=== PATIENT | male | born 1930 | race Caucasian/White ===

== ENCOUNTER 2017-04-02 08:12 | Inpatient (IN) | payer OTHER, BC ==
[2017-03-26 11:20] VITALS: BMI 27.0
--- NOTE | 2017-03-26 11:51 | PAT Medication Instructions ---
Service Date Mar 26, 2017. Current Home Medication List Calcium/Vitamin D (Os-Pawel 500 Plus D), 2 TAB PO BID Cetirizine (Zyrtec), 10 MG PO QPM Cholecalciferol (Vitamin D3), 1 TAB PO QPM PRN for PM Cyanocobalamin (Vitamin B12 500MCG), 3,000 MCG PO QPM Levothyroxine Sodium (Levothyroxine Sodium), 1 TAB PO QAM Omeprazole (Prilosec), 20 MG PO QAM Sennosides (Natural Senna Laxative), 1 TAB PO BID Tamsulosin Hcl (Flomax), 0.4 MG PO QAM [Diclofenac/Misoprost], 1 TAB PO BID Medication Instructions For Your Scheduled Surgery - Check with surgeon for instructions: [Diclofenac/Misoprost], 1 TAB PO BID - Hold the following medications the morning of surgery: Tamsulosin Hcl (Flomax), 0.4 MG PO QAM Sennosides (Natural Senna Laxative), 1 TAB PO BID Calcium/Vitamin D (Os-Pawel 500 Plus D), 2 TAB PO BID - Take the following medications the morning of surgery with a sip of water: Levothyroxine Sodium (Levothyroxine Sodium), 1 TAB PO QAM Omeprazole (Prilosec), 20 MG PO QAM - Take the following medications as scheduled the night before surgery: Sennosides (Natural Senna Laxative), 1 TAB PO BID Cholecalciferol (Vitamin D3), 1 TAB PO QPM PRN for PM Cyanocobalamin (Vitamin B12 500MCG), 3,000 MCG PO QPM Cetirizine (Zyrtec), 10 MG PO QPM If you have any questions please call us at [phone] or [phone] or [phone]
[2017-03-26 12:27] LABS: URINE APPEARANCE CLEAR (CLEAR); URINE BILIRUBIN NEG (NEG); URINE COLOR YELLOW; URINE NITRITE NEG (NEG); URINE SPECIFIC GRAVITY 1.012 (1.000-1.030); UROBILINOGEN NEG (NEG)
[2017-03-26 12:28] LABS: MANUAL MICROSCOPIC REQUIRED? NO; REVIEW REQ? NO
[2017-03-26 12:28] LABS: BASO % 0.2 %; BASO ABS # 0.01 K/uL (0-0.2); COMPLETE YES; HEMATOCRIT 40.8 % (42-52); IG% 0.2 %; LYMPH % 33.7 %; LYMPH ABS # 1.71 K/uL (1.2-3.4); MEAN CELL VOLUME 94.2 fL (80-100); MEAN CORPUSCULAR HEMOGLOBIN 30.7 pg (25-34); MEAN CORPUSCULAR HGB CONC 32.6 g/dl (32-36); MEAN PLATELET VOLUME 11.7 fL (7.4-10.4); MONO % 9.9 %; PLATELET COUNT 104 K/uL (130-400); RED BLOOD COUNT 4.33 M/uL (4.7-6.1); WHITE BLOOD COUNT 5.07 K/uL (4.8-10.8)
[2017-03-26 12:38] LABS: INR 1.1 (0.9-1.1); PARTIAL THROMBOPLASTIN RATIO 1.1; PROTHROMBIN TIME (PATIENT) 11.4 SECONDS (9.0-12.0)
--- NOTE | 2017-03-26 12:41 | DIAGNOSTIC IMAGING REPORT ---
CHEST PREADMISSION(PA/LAT) CLINICAL HISTORY: PAT preoperative evaluation COMPARISON STUDY: 12/23/2014 FINDINGS: Mild stable cardia megaly. Permanent bipolar cardiac pacemaker in good position. Mild stable emphysematous change. No acute process. Small fixed lateral hernia also unchanged. IMPRESSION: Chronic change. No acute process. The above report was generated using voice recognition software. It may contain grammatical, syntax or spelling errors. Electronically signed by: Nishant Arriaga M.D. 03/26/2017 12:40 PM Dictated Date/Time: 03/26/2017 12:39 PM
[2017-03-26 12:59] LABS: ESTIMATED AVERAGE GLUCOSE 103 mg/dl; HA1C FLAG Normal (Normal)
[2017-03-26 13:32] LABS: BUN/CREATININE RATIO 17.1 (10-20); CALCIUM 8.4 mg/dl (8.5-10.1); CREATININE 1.3 mg/dl (0.60-1.40); POTASSIUM 4.4 mmol/L (3.5-5.1)
--- NOTE | 2017-04-01 08:53 | HISTORY & PHYSICAL EXAMINATION ---
DATE OF ADMISSION: 04/02/2017 HISTORY OF PRESENT ILLNESS: The patient presents for left total knee arthroplasty. 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 He has failed attempts at conservative management including physical therapy, anti-inflammatories, relative rest, activity modification and presents for left total knee arthroplasty. He is 6 feet, 210-pound white male with severe DJD. He lives at 2-story home with 2 stairs. He is retired and previously worked at [employer]. His medical history is consistent with that of a pacemaker and no blood thinners. MEDICATIONS: Include cetirizine 10 mg p.o. daily, diclofenac as needed daily, levothyroxine 175 mcg p.o. daily, omeprazole 20 mg p.o. daily, tamsulosin hydrochloride cap 0.4 mg 1 p.o. daily. PAST MEDICAL HISTORY: Significant for irregular heartbeat with pacemaker. PAST SURGICAL HISTORY: Significant for previous spine fusion. SOCIAL HISTORY: The patient denies history of smoking, alcohol use or recreational drug use. FAMILY HISTORY: Otherwise unremarkable and noncontributory. ALLERGIES TO MEDICATIONS: None. REVIEW OF SYSTEMS: Otherwise unremarkable. See history of present illness for pertinent positives. PHYSICAL EXAMINATION: GENERAL: Reveals a very pleasant 86-year-old white male, alert and oriented x3, in no acute distress. He has failed attempts at conservative management and presents for total knee arthroplasty after failing all other attempts at conservative management. HEENT: Otherwise unremarkable, atraumatic, normocephalic. HEART: Regular at 70 beats per minute. No murmurs are noted. LUNGS: Clear without rales, rhonchi, or wheezes noted. ABDOMEN: Soft, nontender, nondistended. Bowel sounds are present in all 4 quadrants. RECTAL: No rectal examination performed. MUSCULOSKELETAL: Consistent with that of left knee pain with varus alignment and DJD, crepitation, medial joint line pain, tenderness and moderate effusion. IMAGING DATA: X-rays revealed there to be evidence of subchondral sclerosis with osteophyte formation. PLAN: Total knee arthroplasty, postoperative pain management, DVT prophylaxis, antibiotics as necessary.
[~2017-04-02] VITALS: Ht 185.4 cm; Wt 92.9 kg
[2017-04-02] VITALS (8 sets, daily range): BP systolic 103–136; BP diastolic 62–89; PULSE 60–65; TEMP 36.3–36.5; O2SAT 92–97; Ht 185.4 cm; Wt 92.9 kg
--- NOTE | 2017-04-02 06:53 | History & Physical Bridge Note ---
H&P Re-Evaluation Bridge Note: I have examined the patient, reviewed the History & Physical and in the interval since the performance of the History & Physical I have noted the following changes of clinical significance: No changes noted
[~2017-04-02 08:12] MED LIST: ACETAMINOPHEN 500 MG TAB PO SCH; ATROPINE SULFATE 0.1 MG/ML 5ML SYR IV PRN; BUPIVACAINE 0.25% 30 ML VIAL ONE; BUPIVACAINE 0.5 % 5 MG/1 ML PF 10ML VIAL ONE; CALC500C70 PO; CEFAZOLIN 2000 MG/60 ML D5W 60 ML IV SCH; CETI10TA84 PO; CHOL20007 PO; CYAN500T13 PO; CeleBREX 200 MG CAP PO SCH; DEXAMETHASONE 4 MG TAB PO SCH; DICLOFENAC PO; EpHEDrine SULFATE INJ 50 MG/ML AMP IV PRN; FAMOTIDINE 20 MG TAB PO SCH; GABAPENTIN 300 MG CAP PO SCH; LACTATED RINGER'S 1000ML 1,000 ML IV SCH; LACTATED RINGER'S 1000ML 500 ML IV ONE; LACTATED RINGER'S 1000ML IV SCH; LEVO175T3 PO; METOCLOPRAMIDE HCL 10 MG TAB PO SCH; OMEP20CA9 PO; ONDANSETRON INJ 2 MG/ML 2 ML VIAL IV PRN; ROPIVACAINE 5MG/ML 30 ML 150 MG, BUPIVACAINE/EPINEPHR 0.5% MPF 30 ML, KETOROLAC TROMETH... INFIL SCH; SENNTAB4 PO; TAMS0.4C38 PO; [UNRECOGNIZED DRUG - OTHER] PO
[2017-04-02] MEDS ORDERED: FENTANYL CITRATE INJ 50 MCG/1 ML 2 ML VIAL ONE (08:21)
[2017-04-02] MEDS ORDERED: MIDAZOLAM HCL 1 MG/ML 2ML VIAL ONE (08:21)
[2017-04-02] MEDS ORDERED: PROPOFOL IV EMULSION 10 MG/ML 20 ML VIAL IV ONE (08:24)
[2017-04-02] MEDS: TRANEXAMIC ACID INJ 1,000 MG in SODIUM CHLORIDE 0.9% 100ML 100 ML IV SCH ×2 (10:13→14:18)
[2017-04-02] MEDS ORDERED: BACITRACIN 50000 UNIT VIAL ONE (10:44)
[2017-04-02] MEDS ORDERED: ORTHO JOINT ANESTHETIC ONE (10:44)
[2017-04-02] MEDS ORDERED: POVIDONE-IODINE OP SOLN 30 ML BTL ONE (10:44)
[2017-04-02] MEDS ORDERED: LABETALOL HCL IV 5 MG/ML 20ML IV ONE (11:31)
--- NOTE | 2017-04-02 12:16 | [facility] Operative Report ---
Operative Report Operative Date Apr 02, 2017. Pre-Operative Diagnosis Left knee degenerative joint disease Post-Operative Diagnosis same as preoperative diagnosis Procedure(s) Performed Left total knee arthroplasy using [employer] general journey 2 nonblock femur 8 tibia 15 poly-[address] 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 Right knee bone and tissue Complication(s) None Disposition Recovery Room / PACU Indications Severe end-stage DJD [facility] to conservative management left knee failed attempts at conservative management including injections physical therapy relative rest Description of Procedure After proper prepping and draping of the left lower extremity anterior midline incision was made over the region of the extensor extensor mechanism after meticulous hemostasis was obtained and maintained in subcutaneous tissues a medial parapatellar incision was made The patella was subluxed lateralward the medial lateral gutter were cleaned from any hypertrophic synovitis and scar tissue of the distal femoral block was placed and the distal femoral osteotomy cut was made subsequently the chamfers anterior and posterior osteotomy cuts were made utilizing the 4-in-1 block the tibia was subsequently subluxed anteriorward medial and ateral meniscal remnants were excised in their entirety remnants of the anterior and posterior cruciate ligaments were excised in their entirety excellent exposure of the proximal tibia was obtained the tibial osteotomy guide was placed on the proximal tibial osteotomy cut was made once again the knee was irrigated with copious amounts of sterile saline solution the patella was subsequently everted lateralward thickened scar tissue around the patella was removed the patella was subsequently cut utilizing a freehand technique and was drilled prepared for final preparation and placement of patella socially flexion-extension gaps were checked and the equal and symmetric trials were placed to the appropriate femoral and tibial trials with poly-spacer being placed for equal flexion and extension gaps and full range of motion including extension to 0 and flexion to 140 the trial components after having been taken to recovery range of motion was subsequently removed meticulous hemostasis was obtained and maintained subsequently a knee block injection of joint cocktail including ropivacaine 0.5% 150 mg. Bupivacaine 0.5 % epinephrine 1-200,030 mL's toradol 30 mg dexamethasone 4 mg ketamine 10 mg clonidine 100 micrograms normal saline solution 30 mg was infiltrated into the soft tissues of the posterior knee medial lateral gutters and periosteal synovium special attention was paid to protect neurovascular structures at all times subsequently trial components having been removed the knee was irrigated with sterile saline solution. debris was removed the proximal tibia was subsequently prepared and was made ready for the placement of the tibial component tibial component was also cemented and tamped into position the femoral component was subsequently placed and cemented in the position the patellar component was subsequently cemented in position because hemostasis once again obtained and maintained wound having been thoroughly irrigated with debridement and debridement lavage was performed as well as a medial parapatellar incision closed with #1 Vicryl in interrupted fashion subcutaneous was closed with #2 Vicryl skin was closed with skin clips. PA-C was necessary for prepping and drapping as well as wound closure of deep fascia Sub cutaneous tissue and skin and was necessary for the case. A sterile compressive dressing was placed patient was taken to recovery in stable condition of report dictated by Lyle I attest to the content of the Intraoperative Record and any orders documented therein. Any exceptions are noted below. I attest to the content of the Intraoperative Record and any orders documented therein. Any exceptions are noted below.
[2017-04-02] MEDS ORDERED: ONDANSETRON INJ 2 MG/ML 2 ML VIAL IV PRN (13:00)
[2017-04-02] MEDS ORDERED: ZOLPIDEM TARTRATE 5 MG TAB PO PRN (13:00)
[2017-04-02] MEDS ORDERED: SOD PHOSPHATE/SOD BIPHOSPHATE ENEMA 132 ML BTL PR PRN (13:00)
[2017-04-02] MEDS ORDERED: BISACODYL 10 MG SUPP PR PRN (13:00)
[2017-04-02] MEDS ORDERED: MAGNESIUM HYDROXIDE SUSP 30 ML UDC PO PRN (13:00)
[2017-04-02] MEDS ORDERED: OXYCODONE HCL IR 5 MG TAB (IMMEDIATE RELEASE) PO PRN (13:00)
--- NOTE | 2017-04-02 13:30 | DIAGNOSTIC IMAGING REPORT ---
LEFT KNEE 1 OR 2 VIEWS ROUTINE CLINICAL HISTORY: Postoperative evaluation. COMPARISON: None FINDINGS: Alignment of the total left knee arthroplasty is anatomic. There is no fracture or unexpected radiopaque foreign body. Drains are in place. IMPRESSION: Expected findings following total left knee arthroplasty. Electronically signed by: Heladio Armstrong M.D. 04/02/2017 1:28 PM Dictated Date/Time: 04/02/2017 1:28 PM
--- NOTE | 2017-04-02 13:37 | Anesthesiology Progress Note ---
Anesthesia Post Op Note Date & Time Apr 02, 2017 at 13:37 Vital Signs Pain Intensity: 0 Vital Signs Past 12 Hours Date Time Temp Pulse Resp B/P (MAP) Pulse Ox O2 Delivery O2 Flow Rate FiO2 04/02/17 13:30 63 18 130/84 95 Nasal Cannula 2 04/02/17 13:15 36.3 61 15 130/86 95 Nasal Cannula 2 04/02/17 13:05 62 15 117/79 95 Nasal Cannula 2 04/02/17 12:55 60 24 118/69 97 Nasal Cannula 2 04/02/17 12:49 36.2 62 14 122/86 94 Nasal Cannula 2 04/02/17 08:48 36.4 62 18 126/89 94 Room Air Notes Mental Status: alert / awake / arousable, participated in evaluation Pt Amnestic to Procedure: Yes Nausea / Vomiting: adequately controlled Pain: adequately controlled Airway Patency, RR, SpO2: stable & adequate BP & HR: stable & adequate Hydration State: stable & adequate Neuraxial Anesthesia: was administered, sensory block is resolving Anesthetic Complications: no major complications apparent
[2017-04-02] MEDS: D5W AND 1/2NSS + 20MEQ KCL 1,000 ML IV SCH (16:18)
[2017-04-02] MEDS: ACETAMINOPHEN 500 MG TAB PO SCH ×2 (16:18→21:51)
[2017-04-02] MEDS: KETOROLAC TROMETHAMINE 15 MG/ML VIAL IV. SCH (17:32)
[2017-04-02] MEDS: CEFAZOLIN IV 2,000 MG in DEXTROSE 5% 50ML 50 ML IV SCH (20:12)
[2017-04-02] MEDS: SENNA 8.6 MG TAB PO SCH (20:28)
[2017-04-02] MEDS: CYANOCOBALAMIN 500 MCG TAB (VIT B-12) PO SCH (20:29)
[2017-04-02] MEDS: CETIRIZINE HCL 10 MG TAB PO SCH (20:29)
[2017-04-02] MEDS: ASPIRIN 81 MG ECTAB PO SCH (20:29)
[2017-04-02] MEDS: CALCIUM 600MG + VIT D 400 IU TAB PO SCH (20:29)
[2017-04-03] MEDS: D5W AND 1/2NSS + 20MEQ KCL 1,000 ML IV SCH ×2 (01:33→11:00)
[2017-04-03 03:15] VITALS: BP 118/64; PULSE 62; TEMP 36.5; O2SAT 94
[2017-04-03] MEDS: CEFAZOLIN IV 2,000 MG in DEXTROSE 5% 50ML 50 ML IV SCH (04:34)
[2017-04-03] MEDS: LEVOTHYROXINE 175 MCG TAB PO SCH (06:02)
[2017-04-03] MEDS: KETOROLAC TROMETHAMINE 15 MG/ML VIAL IV. SCH ×2 (06:03)
[2017-04-03] MEDS: ACETAMINOPHEN 500 MG TAB PO SCH ×3 (06:03→22:31)
[2017-04-03 06:16] LABS: HEMATOCRIT 32.2 % (42-52); MEAN CELL VOLUME 94.2 fL (80-100); MEAN CORPUSCULAR HEMOGLOBIN 31.6 pg (25-34); MEAN CORPUSCULAR HGB CONC 33.5 g/dl (32-36); RED BLOOD COUNT 3.42 M/uL (4.7-6.1); WHITE BLOOD COUNT 10.46 K/uL (4.8-10.8)
[2017-04-03 06:42] LABS: MEAN PLATELET VOLUME 11.7 fL (7.4-10.4); PLATELET COUNT 74 K/uL (130-400)
[2017-04-03 06:43] LABS: PLT ESTIMATE DECREASED
[2017-04-03 06:47] LABS: BUN/CREATININE RATIO 18.9 (10-20); CALCIUM 7.8 mg/dl (8.5-10.1); CREATININE 1.4 mg/dl (0.60-1.40); POTASSIUM 4.1 mmol/L (3.5-5.1)
[2017-04-03 07:01] VITALS: BP 101/66; PULSE 64; TEMP 36.4; O2SAT 91
[2017-04-03] MEDS ORDERED: DEXAMETHASONE 4 MG TAB PO SCH (07:30)
--- NOTE | 2017-04-03 08:11 | Orthopedic Progress Note ---
Orthopedic Progress Note Date of Service Apr 03, 2017. Subjective Post OP Day: 1 Reports: feeling well, Denies: chest pain, SOB, nausea / vomiting, light headedness, calf pain Objective calves soft nontender, N/V intact, dressing C/D/I, A&O x3, toes mobile, hemovac drainage (50ml latest shift) Date Time Temp Pulse Resp B/P (MAP) Pulse Ox O2 Delivery O2 Flow Rate FiO2 04/03/17 07:01 36.4 64 16 101/66 (78) 91 Room Air 04/03/17 03:15 36.5 62 18 118/64 (82) 94 Room Air 04/03/17 00:00 Room Air 04/02/17 23:35 36.4 60 16 107/64 (78) 94 Room Air 04/02/17 20:02 36.5 62 18 103/62 (76) 93 Room Air 04/02/17 17:12 36.4 62 17 122/76 (91) 92 Room Air 04/02/17 16:05 Nasal Cannula 2.0 04/02/17 15:58 36.3 65 17 125/71 (89) 97 Nasal Cannula 3.0 04/02/17 14:57 36.3 61 18 131/80 (97) 97 Nasal Cannula 2.0 04/02/17 14:30 62 18 136/80 (98) 96 Nasal Cannula 2.0 04/02/17 14:00 94 Nasal Cannula 2.0 04/02/17 14:00 36.4 62 18 128/74 (92) 94 Nasal Cannula 2.0 04/02/17 14:00 94 Nasal Cannula 2.0 04/02/17 13:45 61 19 137/86 95 Nasal Cannula 2 04/02/17 13:30 63 18 130/84 95 Nasal Cannula 2 04/02/17 13:15 36.3 61 15 130/86 95 Nasal Cannula 2 04/02/17 13:05 62 15 117/79 95 Nasal Cannula 2 04/02/17 12:55 60 24 118/69 97 Nasal Cannula 2 04/02/17 12:49 36.2 62 14 122/86 94 Nasal Cannula 2 04/02/17 08:48 36.4 62 18 126/89 94 Room Air Laboratory Results 24 Hours: Test 04/03/17 05:44 Hematocrit 32.2 % Hemoglobin 10.8 g/dL Assessment & Plan Assessment: POD 1 s/p Left TKA Plan: PT/OT Patient lives alone with family close by. Adamant that he is having services. Will see how he progresses with PT. Inhouse Planning Pain Management: Celebrex, Toradol, PO Tylenol, Oxy IR DVT Prophylaxis: TEDs, SCDs, ASA Discharge Planning Discharge Planning: uncertain Pain Management: Celebrex, PO Tylenol, Oxy IR DVT Prophylaxis: TEDs, ASA Therapy: Physical Therapy
[2017-04-03] MEDS ORDERED: MoRPHine SULFATE 2 MG/ML CARP IV PRN (08:15)
[2017-04-03] MEDS: CALCIUM 600MG + VIT D 400 IU TAB PO SCH ×2 (08:40→21:15)
[2017-04-03] MEDS: ASPIRIN 81 MG ECTAB PO SCH ×2 (08:40→21:15)
[2017-04-03] MEDS: TAMSULOSIN HCL 0.4 MG CAP PO SCH (08:40)
[2017-04-03] MEDS: MULTIVITAMIN TAB PO SCH (08:41)
[2017-04-03 10:46] VITALS: BP 126/71; PULSE 67; TEMP 36.3; O2SAT 91
[2017-04-03 15:48] VITALS: BP 151/85; PULSE 70; TEMP 36.4; O2SAT 90
[2017-04-03] MEDS: SENNA 8.6 MG TAB PO SCH (21:15)
[2017-04-03] MEDS: CeleBREX 200 MG CAP PO SCH (21:15)
[2017-04-03] MEDS: CYANOCOBALAMIN 500 MCG TAB (VIT B-12) PO SCH (21:15)
[2017-04-03] MEDS: CETIRIZINE HCL 10 MG TAB PO SCH (21:15)
[2017-04-03 23:00] VITALS: BP 124/75; PULSE 113; TEMP 36.3; O2SAT 97
[2017-04-04 04:27] VITALS: PULSE 78; O2SAT 92
[2017-04-04] MEDS: LEVOTHYROXINE 175 MCG TAB PO SCH (05:59)
[2017-04-04] MEDS: ACETAMINOPHEN 500 MG TAB PO SCH ×2 (06:01→14:10)
[2017-04-04 08:01] VITALS: O2SAT 92
[2017-04-04 08:07] VITALS: BP 140/76; PULSE 72; TEMP 36.8; O2SAT 92
[2017-04-04] MEDS: MULTIVITAMIN TAB PO SCH (08:57)
[2017-04-04] MEDS: TAMSULOSIN HCL 0.4 MG CAP PO SCH (08:57)
--- NOTE | 2017-04-04 09:41 | Orthopedic Progress Note ---
Orthopedic Progress Note Date of Service Apr 04, 2017. Subjective Post OP Day: 2 Reports: feeling well, pain controlled w PO medications, Denies: complaints, chest pain, SOB, nausea / vomiting, light headedness Objective calves soft nontender, N/V intact, A&O x3, toes mobile Knee swollen, ecchymotic. Incision benign. Has good ROM (approx 110 deg?) Date Time Temp Pulse Resp B/P (MAP) Pulse Ox O2 Delivery O2 Flow Rate FiO2 04/04/17 08:07 36.8 72 14 140/76 (97) 92 Room Air 04/04/17 08:01 92 04/04/17 04:27 78 92 Room Air 04/04/17 00:00 Room Air 04/03/17 23:00 36.3 113 20 124/75 (91) 97 Room Air 04/03/17 16:10 Room Air 04/03/17 15:48 36.4 70 18 151/85 (107) 90 Room Air 04/03/17 10:46 36.3 67 16 126/71 (89) 91 Room Air Assessment & Plan Assessment: POD 2 s/p Left TKA Plan: PT/OT CM has spoken to family and they do not want to have patient placed in SNF/ Rehab. 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 He appears to understand. Plan for dc to home today. Inhouse Planning Pain Management: Celebrex, Toradol, PO Tylenol, Oxy IR DVT Prophylaxis: TEDs, SCDs, ASA Discharge Planning Discharge Planning: uncertain Pain Management: PO Tylenol, Oxy IR DVT Prophylaxis: TEDs, ASA Therapy: Physical Therapy
[2017-04-04] MEDS ORDERED: RXC5 PO (09:44)
[2017-04-04] MEDS ORDERED: ACET-24 PO (09:44)
[2017-04-04] MEDS ORDERED: ASPEC81 PO (09:44)
--- NOTE | 2017-04-04 09:52 | Discharge Instructions ---
Discharge Instructions Date of Service Apr 04, 2017. Admission Reason for Admission: Left Knee Osteoarthritis Discharge Discharge Diagnosis / Problem: Left Knee Djd Discharge Goals Goal(s): Decrease discomfort, Improve function Activity Recommendations Activity Limitations: per Instructions/Follow-up section Weightbearing Status: Left weightbearing (as tolerated) . Instructions / Follow-Up Instructions / Follow-Up ACTIVITY RECOMMENDATIONS: Please limit your activity at home for the first several days. You may increase your ambulation distance as the days progress and as the knee allows. 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 SELF CARE INSTRUCTIONS AFTER TOTAL KNEE REPLACEMENT A. You may need to continue a physical therapy program after discharge from the hospital. There are several options available to you. Your doctor will assist you in selecting the best one for you. 1. An out-patient facility 2 to 3 times a week for therapy or home therapy. 2. Continue working on all exercises taught to you in the hospital. Your goals should be to increase bending of your knee to 90 degrees and beyond and to fully straighten your knee. B. You may progress at your own pace from walking with a walker or crutches to a cane; then to no assistive devices. C. Make walking a part of your daily routine. Be up as much as comfortable with rest periods throughout the day. Rest with leg elevation is very important. Use the ice wrap frequently for the first 3-4 weeks. D. There are no restrictions on activities. 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 E. Wear the long elastic stockings (TANISHA hose) 20 hours a day for 2 weeks after surgery. They can be removed several times a day for laundering and for a bath. F. You may shower, no tub baths until cleared by your doctor. SPECIAL CARE INSTRUCTIONS: VERY IMPORTANT TO READ AND REVIEW A. There are a few signs you need to watch for after you are home. Call [facility] if you notice any of the followin. Increased severe knee pain. Some pain is expected especially when you exercise. 2. Increased swelling in your leg or knee; pain or swelling of the calf muscle in either lower leg. 3. Any fluid drainage from the incision. 4. Shortness of breath or chest pain. B. Please call [facility] at if you have any concerns or questions about your operation or recovery. The doctor or his nurse will return your call promptly. C. You must take antibiotics before dental work, bladder, bowel or other surgery. Your doctor will provide you with a permanent care to carry describing this precaution. IMPORTANT: * REMEMBER TO TAKE ASPIRIN, 81 MG, TWICE DAILY FOR 4 WEEKS UNLESS OTHERWISE DIRECTED. THIS IS YOUR BLOOD THINNER. * HIGH RISK PATIENTS MAY BE PRESCRIBED A STRONGER BLOOD THINNER. THIS WILL BE PROVIDED AT DISCHARGE. * CALL IF INCREASED PAIN, REDNESS, DRAINAGE OR FEVER GREATER THAT 101. * WEAR TANISHA HOSE 20 HOURS PER DAY FOR 2 WEEKS. * DERMABOND Prineo- This is a mesh tape dressing that is covered with glue. It should remain in place until the incision is properly healed, usually 10-14 days. This dressing is designed to naturally slough off. You may trim the excess mesh tape as it peels off. Incision may be briefly wet in a shower. Dry immediately by blotting with a clean, dry towel. Do not bath or swim until instructed by your doctor. Do not scratch, rub, or pick at the dressing. Do not apply any topical ointments or lotions until dressing is completely removed and/or instructed by your doctor. There may be a small piece of suture material at one end of your incision. Do not pull or trim this. If it is bothersome or catching on clothing, you may cover it with a band-aid. . FOLLOW UP VISIT: If appointment is not already scheduled: Please call [facility] to make a follow-up appointment for 2 weeks after your surgery at . Current Hospital Diet Patient's current hospital diet: Regular Diet Discharge Diet Recommended Diet: Regular Diet Procedures Procedures Performed: Left total knee arthroplasy using [employer] general journey 2 nonblock femur 8 tibia 15 poly-35 oval patella Pending Studies Studies pending at discharge: no Laboratory Results Hemoglobin A1c Test 03/26/17 12:00 Range/Units Estimated Average Glucose 103 mg/dl Hemoglobin A1c 5.2 4.5-5.6 % Medical Emergencies . Who to Call and When: Medical Emergencies: If at any time you feel your situation is an emergency, please call 911 immediately. . Non-Emergent Contact Non-Emergency issues call your: Surgeon Call Non-Emergent contact if: temperature is above 101.5, your pain is not controlled, your pain is worsening, wound has increased drainage, wound has increased redness . "Provider Documentation" section prepared by Danilo Suresh. . VTE Core Measure Inpt VTE Proph given/why not?: Other Anticoagulation, T.E.D. Stockings, SCD's [place] Drug Monitoring Program Search Results: patient reviewed within database, no issues identified
[2017-04-04] MEDS: ASPIRIN 81 MG ECTAB PO SCH (10:01)
[2017-04-04] MEDS: CALCIUM 600MG + VIT D 400 IU TAB PO SCH (10:02)
[2017-04-04] MEDS: CeleBREX 200 MG CAP PO SCH (10:02)
[2017-04-04 10:51] VITALS: BP 140/76; PULSE 72; TEMP 36.8; O2SAT 92
--- NOTE | 2017-04-12 09:00 | DISCHARGE SUMMARY ---
DISCHARGE DIAGNOSIS: Degenerative joint disease, left knee. SECONDARY DIAGNOSIS: None. CONSULTS: None. COMPLICATIONS: None. PROCEDURE: The patient underwent a left total knee arthroplasty with Dr. Alvarenga on 04/02/2017. BRIEF HISTORY: Please see previously dictated history and physical. HOSPITAL SUMMARY: The patient was admitted on the above day for the above procedure. Procedure went without complication. Postop day 1, the patient was feeling well without complaints. He denied chest pain or shortness of breath. Vital signs were stable. He was afebrile. Dressing was clean, dry and intact. He was neurovascularly intact. Calves were soft and nontender. Hemovac drained 50 mL. Hemoglobin was 10.8. The patient began physical therapy per protocol. Postop day 2, the patient continued to improve. He denied chest pain or shortness of breath. Vital signs were stable. He was afebrile. Incision was benign. Range of motion was 110 degrees. The patient continued to progress with physical therapy. He was discharged home later that day with home physical therapy. For further review, please see the chart. Lab, x-ray data and discharge instructions as per chart.
== END 2017-04-04 14:39 | disposition home health service (06) | DRG 470 ==
LOC: C.ACU 08:12 → C.3E 10:20 → ENRESERV 13:33
PROVIDERS: ADMIT Orthopaedic Surgery; ATTEND Orthopaedic Surgery
PROC: 0SRD0J9 Replacement of Left Knee Joint with Synthetic Substitute, Cemented, Open Approach (ICD-10-PCS; principal; 2017-04-02 10:45)
DX: M17.12 Unilateral primary osteoarthritis, left knee (principal); Z95.0 Presence of cardiac pacemaker; Z98.1 Arthrodesis status